=== PATIENT | female | born 1990 | race Hispanic/Latino ===

== ENCOUNTER 2017-04-09 15:21 | Inpatient (IN) | payer MEDICAID, OTHER ==
[2017-04-09] MEDS ORDERED: Naloxone 0.4 mg/ml Inj (Adult) IVP STA (15:33)
[2017-04-09 15:57] LABS: BASO % 0.4 % (0.0-2.0); EOS # 0.1 K/uL (0.0-0.7); EOS % 1.1 % (0.0-4.0); HEMATOCRIT 36.8 % (34.0-47.0); LYMPH # 2.6 K/uL (1.0-4.3); LYMPH % 29.3 % (20.0-40.0); MEAN CELL VOLUME 84.7 fL (81.0-99.0); MEAN CORPUSCULAR HEMOGLOBIN 28.2 pg (27.0-31.0); MEAN CORPUSCULAR HGB CONC 33.3 g/dL (33.0-37.0); MEAN PLATELET VOLUME 8.4 fL (7.2-11.7); MONO # 0.8 K/uL (0.0-0.8); RED CELL DISTRIBUTION WIDTH 13.4 % (11.5-14.5)
[2017-04-09 16:05] LABS: CHLORIDE 97 mmol/L (98-107)
[2017-04-09 16:06] LABS: SODIUM 138 mmol/L (132-148)
--- NOTE | 2017-04-09 16:06 | C.PDOC ---
History Of Present Illness <Sudheer Levin DO - Last Filed: 04/09/17 17:50> <StaceytylorYehuda - Last Filed: 04/09/17 22:21> 26 year old patient presents to the ED after overdosing on 9 bags of heroin nasally prior to arrival. Patient also ate 2 tablets of Klonopin and crack cocaine. Patient admits this was a suicide attempt. She wants to kill herself because she "can't stop using drugs." Patient denies homicidal ideation or any physical complaints at this time. Patient has a history of multiple ED and psych admissions. Patient's last psych admission was at [facility] and she was discharged 40 days later. (Sudheer Levin DO) History Per: Patient Onset/Duration Of Symptoms: Other Current Symptoms Are (Timing): Still Present Suicide/Self Injury Attempted (Context): Ingestion Modifying Factor(s): Crack, Other (heroin) Severity: None Pain Scale Rating Of: 0 Associated Symptoms: Suicidal Thoughts, Suicidal Plan Recent travel outside of the [place]: No <Sudheer Levin DO - Last Filed: 04/09/17 17:50> <Yehuda Watts - Last Filed: 04/09/17 22:21> Time Seen by Provider: 04/09/17 15:33 Chief Complaint (Nursing): Psychiatric Evaluation Past Medical History Reviewed: Historical Data, Nursing Documentation, Vital Signs Family History: States: Unknown Family Hx - Social History Hx Alcohol Use: Yes Hx Substance Use: Yes - Immunization History Hx Tetanus Toxoid Vaccination: No Hx Influenza Vaccination: No Hx Pneumococcal Vaccination: No <Sudheer Levin DO - Last Filed: 04/09/17 17:50> Review Of Systems Except As Marked, All Systems Reviewed And Found Negative. Constitutional: Negative for: Fever Respiratory: Negative for: Shortness of Breath Psych: Positive for: Suicidal ideation. Negative for: Other (homicidal ideation ) <Sudheer Levin DO - Last Filed: 04/09/17 17:50> Physical Exam - Physical Exam Appears: Other (drowsy but easily arousable) Skin: Warm, Dry, No Other (track weinstein) Head: Atraumatic, Normacephalic Eye(s): bilateral: Other (pinpoint pupils) Neck: Normal ROM, Supple Chest: Symmetrical Cardiovascular: Rhythm Regular Respiratory: Normal Breath Sounds, No Rales, No Rhonchi, No Wheezing Gastrointestinal/Abdominal: Soft, No Tenderness Back: Normal Inspection Extremity: Normal ROM Neurological/Psych: Oriented x3 Gait: Steady <Sudheer Levin DO - Last Filed: 04/09/17 17:50> ED Course And Treatment - Laboratory Results Result Diagrams: 04/09/17 15:52 04/09/17 15:52 ECG: Interpreted By Me, Viewed By Me ECG Rhythm: Sinus Rhythm Interpretation Of ECG: Normal axis and normal intervals. No prolonged QTC. Rate From EC (bpm) O2 Sat by Pulse Oximetry: 100 (room air) Pulse Ox Interpretation: Normal Progress Note: Plan: Labs, IV fluids <Sudheer Levin DO - Last Filed: 04/09/17 17:50> - Laboratory Results Result Diagrams: 04/09/17 15:52 04/09/17 15:52 Pulse Ox Interpretation: Normal <Yehuda Watts - Last Filed: 04/09/17 22:21> Disposition <Sudheer Levin DO - Last Filed: 04/09/17 17:50> Discussed With : Petra Esteban Comment: acceptedthe pt on her service and took over the care at 10:20PM Doctor Will See Patient In The: Hospital Counseled Patient/Family Regarding: Studies Performed, Diagnosis - Disposition Disposition Time: 19:00 - POA Present On Arrival: None <Yehuda Watts - Last Filed: 04/09/17 22:21> - Disposition Disposition: HOSPITALIZED Condition: FAIR - Clinical Impression Clinical Impression: Depressive disorder, Substance abuse - Scribe Statement The provider has reviewed the documentation as recorded by the Scribe <Sudheer Levin DO - Last Filed: 04/09/17 17:50> <Yehuda Watts - Last Filed: 04/09/17 22:21> - Scribe Statement Shawna Martinez (Sudheer Levin DO) Provider Attestation: All medical record entries made by the Scribe were at my direction and personally dictated by me. I have reviewed the chart and agree that the record accurately reflects my personal performance of the history, physical exam, medical decision making, and the department course for this patient. I have also personally directed, reviewed, and agree with the discharge instructions and disposition. (Sudheer Levin DO) Decision To Admit <Sudheer Levin DO - Last Filed: 04/09/17 17:50> - Pt Status Changed To: Hospital Disposition Of: Inpatient - Admit Certification Admit to Inpatient:: After my assessment, the patient will require hospitalization for at least two midnights. This is because of the severity of symptoms shown, intensity of services needed, and/or the medical risk in this patient being treated as an outpatient. - InPatient: Physician Admission Certification: I certify that this patient requires 2 or more midnights of care for the following reason:: After my assessment, the patient will require hospitalization for at least two midnights. This is because of the severity of symptoms shown, intensity of services needed, and/or the medical risk in this patient being treated as an outpatient. - . Bed Request Type: Psychiatry Admitting Physician: Petra Esteban <Yehuda Watts - Last Filed: 04/09/17 22:21> - . Patient Diagnosis: Depressive disorder
[2017-04-09 16:07] LABS: POTASSIUM 3.8 mmol/L (3.6-5.2)
[2017-04-09 16:08] LABS: ALB/GLOB RATIO 1.5 (1.0-2.1); ALKALINE PHOSPHATASE 50 U/L (38-126); AST/SGOT 121 U/L (14-36); BILIRUBIN,TOTAL 0.6 mg/dL (0.2-1.3); CARBON DIOXIDE 32 mmol/L (22-30); GFR AFRICAN-AMERICAN > 60; TOTAL PROTEIN 6.8 g/dL (6.3-8.3)
[2017-04-09 16:09] LABS: ALCOHOL SERUM < 10 mg/dl (0-10); ALT/SGPT 177 U/L (9-52); BLOOD UREA NITROGEN 9 mg/dL (7-17); CALCIUM 8.8 mg/dl (8.6-10.4); GLUCOSE,RANDOM 93 mg/dL (65-105)
[2017-04-09] MEDS ORDERED: Sodium Chloride 0.9% 1,000 ML IV ONE (16:50)
[2017-04-09 18:29] LABS: RBC URINE 1 /hpf (0-3); URINE BILIRUBIN NEGATIVE (NEGATIVE); URINE BLOOD NEGATIVE (NEGATIVE); URINE COLOR Yellow (YELLOW); URINE GLUCOSE (UA) NORMAL (Normal); URINE KETONE NEGATIVE (NEGATIVE); URINE LEUKOCYTE ESTERASE NEG Leu/uL (Negative); URINE PROTEIN NEGATIVE (NEGATIVE); URINE UROBILINOGEN NORMAL mg/dL (0.2-1.0); WBC URINE < 1 /hpf (0-5)
[2017-04-10] MEDS ORDERED: Aluminum Hydroxide/Magnesium Hydroxide Susp (30 mL) PO PRN (01:14)
--- NOTE | 2017-04-10 09:42 | PCM.PSYCH ---
Initial Psychiatric Evaluation - Initial Psychiatric Evaluation Type of Admission: Voluntary Legal Status: Capacity Chief Complaint (in patient's own words): "I can't stop using drugs." History of Present Illness and Precipitating Events: Patient is a 26 year old female who lives with her grandparents. 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 She presents to the ED after overdosing on 9 bags of heroin nasally, 2 tablets of Klonipin, and cocaine. She is suicidal because she "can't stop using drugs... only losers do this, and I can' t stop." She also smokes half a pack of cigarettes per day. Patient was brought in by her sponsor. Patient complains of depression and severe anxiety and mood swings. 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 Why is this happening to me?" She states she has racing thoughts and her mind won't stop running and sounds like TV static. She is nervous and her speech is pressured, but she is coherent and polite. She states her last treatment was at [facility] where she was given suboxone. Her last in-patient treat was at [facility] in February 2017, where she spent 10 days. After discharge, she stopped going to therapy and to her psychiatrist. She states she relapses when she gains weight, and this is what caused her to relapse this time. She asks for a dietitian consult to provide a diet plan she can follow in order not to gain weight. PMH: denies Allergies: sulfa Current Medications: Active Medications Generic Name Dose Route Start Last Admin Trade Name Freq PRN Reason Stop Dose Admin Al Hydrox/Mg Hydrox/Simethicone 30 ml 04/10/17 01:14 Maalox 30 Ml PO Q6H PRN Indigestion / Heartburn Chlordiazepoxide 25 mg 04/09/17 22:30 04/10/17 00:05 Librium PO 25 mg Q6 PRN Administration s/s withdrawals Hydroxyzine HCl 50 mg 04/09/17 22:30 04/10/17 00:05 Atarax PO 50 mg Q6 PRN Administration Anxiety Ibuprofen 600 mg 04/10/17 01:10 04/10/17 01:45 Motrin Tab PO 600 mg Q6H PRN Administration Pain, moderate (4-7) Nicotine 1 patch 04/10/17 10:00 Nicoderm Cq TD DAILY SLICK Ondansetron HCl 4 mg 04/10/17 01:12 Zofran Tab PO Q6H PRN Nausea/Vomiting Quetiapine Fumarate 100 mg 04/10/17 01:35 04/10/17 01:42 Seroquel PO 100 mg HS SLICK Administration Past Psychiatric History - Past Psychiatric History Previous Treatment History: None Pertinent Medical Hx (Current Medical&Sleep Prob, Allergies): Allergies Allergy/AdvReac Type Severity Reaction Status Date / Time Sulfa (Sulfonamide Allergy Verified 04/09/17 15:32 Antibiotics) No Known Home Med 04/09/17 Review of Systems - Review of Systems All systems: reviewed and no additional remarkable complaints except - Psychiatric Psychiatric: Anxiety, Depression, Hopelessness, Irritability, Mood Swings, Suicidal Ideation Mental Status Examination - Personal Presentation Personal Presentation: Looks stated age - Affect Affect: Constricted, Depressed - Motor Activity Motor Activity: Calm - Reliability in Providing Information Reliability in Providing Information: Good - Speech Speech: Organized - Mood Mood: Depressed, Anxious - Formal Thought Process Formal Thought Process: Flight of ideas - Obsessions/Compulsions Obsessions: No Compulsions: No - Cognitive Functions Orientation: Person, Place, Situation, Time Sensorium: Alert Attention/Concentration: Attentive Abstract Thinking: [place] Estimate of Intelligence: Below average Judgement: Imparied, as evidence by: Poor judgement, Imparied, as evidence by: Lack of insight into illness - Risk Risk: Suicidal, Diminished functioning - Strength & Assets Inventory Strength & Assets Inventory: Family support DSM 5 DX - DSM 5 DSM 5 Diagnosis: Bipolar disorder mixed severe without psychotic features Opiate use disorder severe Opiate withdrawal Sedative/hypnotic use disorder severe Alcohol use disorder severe - Recommended/Plan of Treatment Treatment Recommendations and Plan of Treatment: Bipolar disorder mixed severe without psychotic features CBT Psychoeducation Supportive therapy, group therapy, individual therapy Neurontin 100 mg by mouth 3 times a day SAeroquel 100 mg by mouth daily at bedtime Opiate use disorder severe CBT Psychoeducation Supportive therapy, individual therapy Use [place] for abstinence Opiate withdrawal CBT Psychoeducation Supportive therapy, individual therapy Methadone taper Sedative/hypnotic use disorder severe CBT Psychoeducation Supportive therapy, individual therapy Use [place] for abstinence Alcohol use disorder severe CBT Psychoeducation Supportive therapy, individual therapy Use [place] for abstinence - Smoking Cessation Smoking Cessation Initiated: No
[2017-04-11] MEDS ORDERED: Magnesium Hydroxide Susp 30 ml UD PO PRN (10:10)
--- NOTE | 2017-04-11 10:12 | PCM.PYCHPN ---
Psychiatric Progress Note - Psychiatric Progress Note Patient seen today, length of contact: 15 min Patient Chief Complaint: "I am feeling terrible." Problems Identified/Issues Discussed: Patient seen and evaluated, chart reviewed and discussed with the nurse. Patient remained irritable and agitated. Patient reports withdrawal symptoms including nausea, headaches, cramps and sweating. She reports anxiety and irritable mood and reorts poor sleep. She is taking medication and denied any side effects. Supportive therapy and psychoeducation were given. Medication Change: Yes (methaodne taper) Medical Record Reviewed: Yes Mental Status Examination - Cognitive Function Orientation: Person, Place, Situation, Time Memory: Intact Attention: WNL Concentration: Poor Association: WNL Fund of Knowledge: Poor - Mood Mood: Depressed, Anxious - Affect Affect: Constricted, Depressed - Speech Speech: Soft - Formal Thought Process Formal Thought Process: Flight of ideas - Suicidal Ideation Suicidal Ideation: No - Homicidal Ideation Homicidal Ideation: No Goal/Treatment Plan - Goal/Treatment Plan Need for Continued Stay: Discharge may exacerbated symptoms, Severe functional impairment Progress Toward Problem(s) and Goals/Treatment Plan: Bipolar disorder mixed severe without psychotic features CBT Psychoeducation Supportive therapy, group therapy, individual therapy Neurontin 100 mg by mouth 3 times a day Seroquel 100 mg by mouth daily at bedtime Opiate use disorder severe CBT Psychoeducation Supportive therapy, individual therapy Use [place] for abstinence Opiate withdrawal CBT Psychoeducation Supportive therapy, individual therapy Methadone taper Sedative/hypnotic use disorder severe CBT Psychoeducation Supportive therapy, individual therapy Use [place] for abstinence Alcohol use disorder severe CBT Psychoeducation Supportive therapy, individual therapy Use [place] for abstinence - Smoking Cessation Smoking Cessation Initiated: No
--- NOTE | 2017-04-12 14:16 | PCM.PYCHPN ---
Psychiatric Progress Note - Psychiatric Progress Note Patient seen today, length of contact: 15 min Patient Chief Complaint: "I'm good. I still feel anxious." Problems Identified/Issues Discussed: Patient seen and evaluated, chart reviewed and discussed with the nurse. Patient states she is feeling better but is still feeling anxious. Patient states her medications are helping with her anxiety and that she does not have any side effects. Patient seen asking for anxiety medications. Patient is still irritable and short during her examination. Patient denies any suicidal ideation. As per nursing, patient is still very flirtatious with other patients , but is sleeping well. Patient states her AA sponsor is working on discharge placement to in-patient rehab. Supportive therapy and psychoeducation were given. Medication Change: Yes (methaodne taper) Medical Record Reviewed: Yes Mental Status Examination - Cognitive Function Orientation: Person, Place, Situation, Time Memory: Intact Attention: WNL Concentration: Poor Association: WNL Fund of Knowledge: Poor - Mood Mood: Depressed, Anxious - Affect Affect: Constricted, Depressed - Speech Speech: Soft - Formal Thought Process Formal Thought Process: Flight of ideas - Suicidal Ideation Suicidal Ideation: No - Homicidal Ideation Homicidal Ideation: No Goal/Treatment Plan - Goal/Treatment Plan Need for Continued Stay: Discharge may exacerbated symptoms, Severe functional impairment Progress Toward Problem(s) and Goals/Treatment Plan: Bipolar disorder mixed severe without psychotic features CBT Psychoeducation Supportive therapy, group therapy, individual therapy Neurontin 100 mg by mouth 3 times a day Seroquel 100 mg by mouth daily at bedtime Opiate use disorder severe CBT Psychoeducation Supportive therapy, individual therapy Use [place] for abstinence Opiate withdrawal CBT Psychoeducation Supportive therapy, individual therapy Methadone taper Sedative/hypnotic use disorder severe CBT Psychoeducation Supportive therapy, individual therapy Use [place] for abstinence Alcohol use disorder severe CBT Psychoeducation Supportive therapy, individual therapy Use [place] for abstinence
[2017-04-13 11:15] VITALS: O2SAT 99
--- NOTE | 2017-04-13 17:03 | PCM.PYCHPN ---
Psychiatric Progress Note - Psychiatric Progress Note Patient seen today, length of contact: 15 min Patient Chief Complaint: I still have some withdrawal symptoms, can I get one extra dose of methadone 5 mg. Problems Identified/Issues Discussed: Patient seen. Chart reviewed. Case discussed with the staff. Issues related to illness and treatment were discussed with the patient. Reported compliant with treatment with no adverse affects. Tolerating treatment very well. Patient reported still feeling some withdrawal symptoms including body aches, abdominal cramps. Also reported feeling anxious. Asking for one extra dose of methadone 5 mg. Education provided about the treatment. At the time of evaluation, patient was awake alert oriented 3, had no delusions, no auditory or visual hallucinations, no suicidal ideations or homicidal ideations. Medical Problems: None reported Diagnostic Results: Reviewed DSM 5 Symptoms Update: Improvement with treatment Medication Change: No Medical Record Reviewed: Yes Mental Status Examination - Cognitive Function Orientation: Person, Place, Situation, Time Memory: Intact Attention: WNL Concentration: WNL Association: WN Fund of Knowledge: [facility] Decription of patient's judgement and insights: Fair - Mood Mood: Anxious - Affect Affect: Other - Speech Speech: Appropriate, Soft - Formal Thought Process Formal Thought Process: No Impairment Psychotic Thoughts and Behaviors: None - Suicidal Ideation Suicidal Ideation: No - Homicidal Ideation Homicidal Ideation: No Goal/Treatment Plan - Goal/Treatment Plan Need for Continued Stay: Remain at risks for inpatient hospitalization, Discharge may exacerbated symptoms, Severe functional impairment Progress Toward Problem(s) and Goals/Treatment Plan: Patient education Supportive therapy Continue treatment as before Estimated Date of D/C: 04/16/17 - Smoking Cessation Smoking Cessation Initiated: Yes
--- NOTE | 2017-04-14 13:58 | PCM.PYCHPN ---
Psychiatric Progress Note - Psychiatric Progress Note Patient seen today, length of contact: 15 min Patient Chief Complaint: I'm feeling better. I have some concerns about my Ativan. Problems Identified/Issues Discussed: Patient seen. Chart reviewed. Case discussed with the staff. Issues related to illness and treatment were discussed with the patient. Reported compliant with treatment with no adverse affects. Tolerating treatment very well. Patient reported feeling better. Patient had some concerns about her Ativan after discharge. Education provided. We'll adjust the dose of Ativan from 1 mg every 6 hours when necessary to 1 mg every 12 when necessary. At the time of evaluation, patient was awake alert oriented 3, had no delusions, no auditory or visual hallucinations, no suicidal ideations or homicidal ideations. Medical Problems: None reported Diagnostic Results: Reviewed DSM 5 Symptoms Update: Improving with treatment Medication Change: No Medical Record Reviewed: Yes Mental Status Examination - Cognitive Function Orientation: Person, Place, Situation, Time Memory: Intact Attention: WNL Concentration: WNL Association: WNL Fund of Knowledge: [facility] Decription of patient's judgement and insights: Fair - Mood Mood: Anxious - Affect Affect: Other - Speech Speech: Appropriate, Soft - Formal Thought Process Formal Thought Process: No Impairment Psychotic Thoughts and Behaviors: None - Suicidal Ideation Suicidal Ideation: No - Homicidal Ideation Homicidal Ideation: No Goal/Treatment Plan - Goal/Treatment Plan Need for Continued Stay: Remain at risks for inpatient hospitalization, Discharge may exacerbated symptoms, Severe functional impairment Progress Toward Problem(s) and Goals/Treatment Plan: Patient education Supportive therapy Will adjust the dose of Ativan 1 mg by mouth every 12 when necessary from 1 mg every 6 when necessary Continue rest of the treatment as before Estimated Date of D/C: 04/16/17 - Smoking Cessation Smoking Cessation Initiated: Yes
--- NOTE | 2017-04-15 17:10 | PCM.PYCHPN ---
Psychiatric Progress Note - Psychiatric Progress Note Patient seen today, length of contact: 15 min Patient Chief Complaint: I'm feeling better. Problems Identified/Issues Discussed: Patient seen. Chart reviewed. Case discussed with the staff. Issues related to illness and treatment were discussed with the patient. Reported compliant with treatment with no adverse affects. Tolerating treatment very well. Patient reported feeling better. Patient had some concerns about her Ativan after discharge. Education provided. At the time of evaluation, patient was awake alert oriented 3, had no delusions, no auditory or visual hallucinations, no suicidal ideations or homicidal ideations. Medical Problems: None reported Diagnostic Results: Reviewed DSM 5 Symptoms Update: Improving with treatment Medication Change: No Medical Record Reviewed: Yes Mental Status Examination - Cognitive Function Orientation: Person, Place, Situation, Time Memory: Intact Attention: WNL Concentration: WNL Association: [facility] Fund of Knowledge: [facility] Decription of patient's judgement and insights: Fair - Mood Mood: Neutral - Affect Affect: Other (Appropriate) - Speech Speech: Appropriate, Soft - Formal Thought Process Formal Thought Process: No Impairment Psychotic Thoughts and Behaviors: None - Suicidal Ideation Suicidal Ideation: No - Homicidal Ideation Homicidal Ideation: No Goal/Treatment Plan - Goal/Treatment Plan Need for Continued Stay: Remain at risks for inpatient hospitalization, Discharge may exacerbated symptoms, Severe functional impairment Progress Toward Problem(s) and Goals/Treatment Plan: Patient education Supportive therapy Continue treatment as before Estimated Date of D/C: 04/16/17 - Smoking Cessation Smoking Cessation Initiated: Yes
--- NOTE | 2017-04-16 09:42 | PCM.PYCHDC ---
Mental Status Examination - Mental Status Examination Orientation: Person, Place, Situation, Time Memory: Intact Mood: Neutral Affect: Constricted Speech: Soft Attention: WNL Concentration: WNL Association: WNL Fund of Knowledge: WNL Formal Thought Process: No Impairment Description of patient's judgement and insight: good, fair Psychotic Thoughts and Behaviors: denies any AVH Suicidal Ideation: No Current Homicidal Ideation?: No Discharge Summary - Discharge Note Reason for Hospitalization: Patient is a 26 year old female who lives with her grandparents. 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 She presents to the ED after overdosing on 9 bags of heroin nasally, 2 tablets of Klonipin, and cocaine. She is suicidal because she "can't stop using drugs... only losers do this, and I can' t stop." She also smokes half a pack of cigarettes per day. Patient was brought in by her AA sponsor. Patient complains of depression and severe anxiety and mood swings. 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 Why is this happening to me?" She states she has racing thoughts and her mind won't stop running and sounds like TV static. She is nervous and her speech is pressured, but she is coherent and polite. She states her last treatment was at [facility] where she was given suboxone. Her last in-patient treat was at [facility] in February 2017, where she spent 10 days. After discharge, she stopped going to therapy and to her psychiatrist. She states she relapses when she gains weight, and this is what caused her to relapse this time. She asks for a dietitian consult to provide a diet plan she can follow in order not to gain weight. PMH: denies Allergies: sulfa Consultations:: List each consultation separately and include: 1. Reason for request. 2. Findings. 3. Follow-up Summary of Hospital Course include:: 1. Description of specific treatment plan utilized for patients during their course of treatmen. 2. Summarize the time- course for resolution of acute symptoms and/or regressed behaviors. 3. Describe issues identified and worked on during hospitalization. 4. Describe medication utilized. 5. Describe medical problems identified and treated. 6. Reassessment of suicide risk Summary of Hospital Course: During the course of her stay, patient (pt) started progressively improving and she no longer remained anxious, depressed and suicidal. Her mood was getting better and she started attending groups and meetings and started socializing. The doses of her medications were maximized and patient denied any feelings of hopelessness, helplessness, and worthlessness, denied any problem with the sleep or appetite, denied suicidal ideation or homicidal ideation. Pt denied any auditory or visual hallucinations. Patient reported improvement in her mood and tolerated these medications very well and denied any side effects. - Final Diagnosis (DSM 5) Condition upon Discharge: FAIR DSM 5: Bipolar disorder mixed severe without psychotic features Opiate use disorder severe Opiate withdrawal Sedative/hypnotic use disorder severe Alcohol use disorder severe Disposition: HOME/ ROUTINE Follow-up Treatment Plan: Education: Pt was educated and counseled about the risks and benefits of taking and not taking medications. Pt was educated and counseled about the risks of drinking and abusing drugs. Pt was educated and counseled to go to the ER or call 911 if pt develop suicidal ideation or homicidal ideation, worsening of symptoms or severe side effects of the meds. Prescriptions/Medication Reconciliation: Gabapentin [Neurontin] 100 mg PO BID #60 cap QUEtiapine [Seroquel] 100 mg PO HS #30 tab - Smoking Cessation Smoking Cessation Medication prescribed: No - Antipsychotic Medications Pt discharged on 2 or more routine antipsychotic medications: No
[2017-04-16 11:42] VITALS: BP 108/67; PULSE 79; RESP 19; TEMP 97.8
--- NOTE | 2017-04-29 14:34 | CARD ---
APPROVED REPORT EKG Measurement Heart [id number] <Conclusion> Sinus tachycardia Possible Left atrial enlargement Left ventricular hypertrophy Abnormal ECG
== END 2017-04-16 10:20 | disposition home or self-care (01) | DRG 430 ==
LOC: C.ER 15:21 → C.5E 22:21
PROVIDERS: ADMIT Psychiatry & Neurology Psychiatry; ATTEND Psychiatry & Neurology Psychiatry
PROC: GZ3ZZZZ Medication Management (ICD-10-PCS; principal; 2017-04-09)
PROC: HZ91ZZZ Pharmacotherapy for Substance Abuse Treatment, Methadone Maintenance (ICD-10-PCS; 2017-04-09)
PROC: HZ59ZZZ Individual Psychotherapy for Substance Abuse Treatment, Supportive (ICD-10-PCS; 2017-04-09)
PROC: GZHZZZZ Group Psychotherapy (ICD-10-PCS; 2017-04-09)
PROC: GZ56ZZZ Individual Psychotherapy, Supportive (ICD-10-PCS; 2017-04-09)
DX: F31.63 Bipolar disorder, current episode mixed, severe, without psychotic features (principal); F11.23 Opioid dependence with withdrawal; F13.20 Sedative, hypnotic or anxiolytic dependence, uncomplicated; R45.851 Suicidal ideations; F10.20 Alcohol dependence, uncomplicated

== ENCOUNTER 2017-06-28 17:34 | Inpatient (IN) | payer MEDICAID, OTHER ==
[2017-06-28 18:35] LABS: BASO # 0.1 K/uL (0.0-0.2); BASO % 0.6 % (0.0-2.0); EOS # 0.1 K/uL (0.0-0.7); EOS % 0.6 % (0.0-4.0); HEMATOCRIT 39.9 % (34.0-47.0); LYMPH # 2.7 K/uL (1.0-4.3); LYMPH % 24.6 % (20.0-40.0); MEAN CELL VOLUME 83.7 fL (81.0-99.0); MEAN CORPUSCULAR HEMOGLOBIN 27.9 pg (27.0-31.0); MEAN CORPUSCULAR HGB CONC 33.4 g/dL (33.0-37.0); MEAN PLATELET VOLUME 7.8 fL (7.2-11.7); MONO # 0.9 K/uL (0.0-0.8); MONO % 8.5 % (0.0-10.0); RED CELL DISTRIBUTION WIDTH 15.1 % (11.5-14.5)
[2017-06-28 18:41] LABS: RBC URINE 13 /hpf (0-3); URINE BACTERIA RARE (<OCC); URINE BILIRUBIN NEGATIVE (NEGATIVE); URINE BLOOD 2+ (NEGATIVE); URINE COLOR Yellow (YELLOW); URINE GLUCOSE (UA) NORMAL (Normal); URINE HYALINE CAST 0-2 /lpf (0-2); URINE KETONE TRACE mg/dL (NEGATIVE); URINE LEUKOCYTE ESTERASE NEG Leu/uL (Negative); URINE PROTEIN NEGATIVE (NEGATIVE); URINE UROBILINOGEN NORMAL mg/dL (0.2-1.0); WBC URINE < 1 /hpf (0-5)
[2017-06-28 18:44] LABS: CHLORIDE 99 mmol/L (98-107); POTASSIUM 3.9 mmol/L (3.6-5.2); SODIUM 141 mmol/L (132-148)
[2017-06-28 18:46] LABS: AST/SGOT 256 U/L (14-36); BILIRUBIN,TOTAL 0.7 mg/dL (0.2-1.3); CARBON DIOXIDE 25 mmol/L (22-30); GFR AFRICAN-AMERICAN > 60
[2017-06-28 18:47] LABS: ALB/GLOB RATIO 1.3 (1.0-2.1); ALKALINE PHOSPHATASE 88 U/L (38-126); ALT/SGPT 288 U/L (9-52); BLOOD UREA NITROGEN 9 mg/dL (7-17); CALCIUM 9.3 mg/dl (8.6-10.4); GLUCOSE,RANDOM 111 mg/dL (65-105); TOTAL PROTEIN 7.8 g/dL (6.3-8.3)
[2017-06-28 18:57] LABS: ALCOHOL SERUM 354 mg/dl (0-10)
--- NOTE | 2017-06-28 21:39 | C.PDOC ---
History Of Present Illness 26 year old female presents to the emergency department with complaints of depression and suicidal ideation. Patient states she drank alcohol today and last alcohol use was just prior to arrival. She denies abdominal pain, vomiting , homicidal ideations, or other complaints at this time. Time Seen by Provider: 06/28/17 17:54 Chief Complaint (Nursing): Psychiatric Evaluation History Per: Patient, Family (father ) History/Exam Limitations: no limitations Onset/Duration Of Symptoms: Hrs Current Symptoms Are (Timing): Still Present Suicide/Self Injury Attempted (Context): None Modifying Factor(s): Alcohol Associated Symptoms: Depression, Suicidal Thoughts Involuntary Hold By: None Recent travel outside of the [place]: No Past Medical History Reviewed: Historical Data, Nursing Documentation, Vital Signs Vital Signs: Last Vital Signs Temp 97.7 F 07/01/17 09:41 Pulse 81 07/01/17 15:47 Resp 16 07/01/17 09:41 BP 119/76 07/01/17 15:47 Pulse Ox 99 07/01/17 09:41 - Medical History PMH: Bipolar Disorder, Personality Disorder, Schizophrenia, Seizures (x 1 secondary to Klonopin withdrawal) - [facility] GROUP PSYCHOTHERAPY (04/09/17) INDIV PSYCHOTHERAPY FOR SUBSTANCE ABUSE TREATMENT, SUPPORT (04/09/17) INDIVIDUAL PSYCHOTHERAPY, SUPPORTIVE (04/09/17) MEDICATION MANAGEMENT (04/09/17) PHARMACOTHERAPY FOR SUBSTANCE ABUSE, METHADONE MAINT (04/09/17) Family History: States: Unknown Family Hx - Social History Hx Alcohol Use: Yes (Wine) Hx Substance Use: Yes - Immunization History Hx Tetanus Toxoid Vaccination: No Hx Influenza Vaccination: No Hx Pneumococcal Vaccination: No Review Of Systems Constitutional: Negative for: Fever, Chills Cardiovascular: Negative for: Chest Pain, Palpitations Respiratory: Negative for: Cough, Shortness of Breath Gastrointestinal: Negative for: Nausea, Vomiting, Abdominal Pain, Diarrhea Psych: Positive for: Depression, Suicidal ideation Physical Exam - Physical Exam Appears: Non-toxic, No Acute Distress Skin: Warm, Dry Head: Atraumatic Eye(s): bilateral: Normal Inspection, EOMI Oral Mucosa: Moist Neck: Supple Chest: Symmetrical, No Deformity Cardiovascular: Rhythm Regular Respiratory: Normal Breath Sounds, No Rhonchi, No Wheezing Gastrointestinal/Abdominal: Soft, No Tenderness, No Distention, No Guarding, No Rebound Extremity: Normal ROM, No Tenderness Neurological/Psych: Oriented x3, Normal Speech, Normal Cognition, Normal Cranial Nerves, Normal Motor, Normal Sensation Gait: Steady ED Course And Treatment - Laboratory Results Result Diagrams: 06/28/17 18:32 06/28/17 18:32 O2 Sat by Pulse Oximetry: 95 (room air ) Progress Note: Patient was given Zofran and Xanax. ED OBSERVATION Discharge: Yes Date of observation admission: 06/28/17 Time of observation admission: 18:45 - Observation admission statement Patient is being placed in observation because:: patient is intoxicated and notes suicidal ideations. - Goals of Observation Goals of observation are:: Sobriety. Disposition - Disposition Disposition: HOSPITALIZED Disposition Time: 01:00 Condition: IMPROVED - Clinical Impression Clinical Impression: Alcohol abuse - Scribe Statement The provider has reviewed the documentation as recorded by the Scribilya Melendez All medical record entries made by the Kareemibilya were at my direction and personally dictated by me. I have reviewed the chart and agree that the record accurately reflects my personal performance of the history, physical exam, medical decision making, and the department course for this patient. I have also personally directed, reviewed, and agree with the discharge instructions and disposition.
[2017-06-29] MEDS: Multiple Vitamins Tab PO SCH (11:11)
--- NOTE | 2017-06-29 11:45 | PCM.BM ---
<Radha Mak - Last Filed: 06/29/17 11:42> Treatment Plan Problems - Problems identified on initial assessmt Depression Date Initiated: 06/29/17 Time Initiated: 11:43 Assessment reference: NA Status: Active Substance Abuse Date Initiated: 06/29/17 Time Initiated: 11:43 Assessment reference: NA Status: Active Treatment assets and liabiliti Patient Assests: cooperative, ADL independent, physically healthy, good past tx response, cognitively intact Patient Liabilities: substance abuse (ETOH) - Milieu Protocol Maintain good personal hygiene: daily Encourage regular showers Maintain personal safety: every shift Educate patient to report safety concerns to staff, every shift Monitor environment for contraband/sharps Medication safety: Monitor for expected outcome, potential side effects: every shift, Assess barriers to learning: every shift, Assess readiness for medication education: every shift <Diandra Barton - Last Filed: 07/01/17 11:05> Family Contact Family involvement: Family/SO is involved Family contact: Patient agrees to contact Family contact name: James Lugo-father Family contacted how many times per week?: 91 - Goals for Treatment Patient goals for treatment: "I'm going to rehab." Discharge/Continuing Care - Education Needs Education Needs: Patient Medication, Patient Coping Skills, Patient Community resources - Discharge Discharge Criteria: Tolerates medication w/o severe side effects, No longer exhibiting s/s of withdrawal Discharge to:: Substance Abuse Rehab - Treatment Team Participation Discussed with Family/SO: Yes Was Patient/Family/SO present at Treatment Team Meeting: Yes <Chong Johnston - Last Filed: 07/01/17 11:13> - Diagnosis (1) Bipolar I disorder, most recent episode depressed, severe without psychotic features Status: Acute Interventions: 07/01/17 11:11 * Assess/adjust medications daily and /or as needed * See patient on an individual basis 7x/week to assess level of manic behaviors and stability * Discuss risks, benefits, side effects and alternatives of medications (2) Alcohol use disorder, severe, dependence Status: Acute Interventions: 07/01/17 11:12 * Assess 7x/week regarding severity of withdrawal * Educate regarding risks, benefits, side effects and alternatives of medications * Use Motivational Interviewing for abstinence * Use CBT for relapse prevention * Medication management for withdrawal symptoms * Encourage medication assisted treatment
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
[2017-06-30] MEDS: Multiple Vitamins Tab PO SCH (10:00)
--- NOTE | 2017-06-30 20:45 | PCM.PYCHPN ---
Psychiatric Progress Note - Psychiatric Progress Note Patient seen today, length of contact: 15 minutes Patient Chief Complaint: "I'm feeling better" Problems Identified/Issues Discussed: Patient was seen. Chart was reviewed important content noted. Nurse input received. Patient has no new complaints. No events overnight. Patient slept well and is eating well. Patient reported that she still experiencing withdrawal symptoms, but reported improvement in her withdrawal symptoms with medication. Denies suicidal or homicidal ideation. Patient reported improvement in hallucinations. No delusions elicited. No paranoia elicited. Patient has remained in good clinical and behavioral control. Patient is finding medications beneficial and would like to continue with treatment plan. Patient appreciated that treatment team is trying to help. Diagnostic Results: no new lab result DSM 5 Symptoms Update: Bipolar I disorder mre depressive. Alcohol use d/o severe, intoxicated, withdrawal Opioid use d/o Medication Change: No Medical Record Reviewed: Yes Mental Status Examination - Cognitive Function Orientation: Person, Place, Situation, Time Memory: Intact Attention: WNL Concentration: WNL Association: WNL Fund of Knowledge: [facility] Decription of patient's judgement and insights: fair/fair - Mood Mood: Depressed - Affect Affect: Constricted, Depressed - Speech Speech: Appropriate - Formal Thought Process Formal Thought Process: Hallucinations Psychotic Thoughts and Behaviors: Reported improvement in VH - Suicidal Ideation Suicidal Ideation: No - Homicidal Ideation Homicidal Ideation: No Goal/Treatment Plan - Goal/Treatment Plan Progress Toward Problem(s) and Goals/Treatment Plan: Admit to 5E. Continue etoh detox. Thiamine, MV, Folic acid Nicotine patch for nicotine craving. Seroquel and will titrate it for her mood stabilization. Will consider to start Naltrexone for alcohol craving before discharge. therapy in milieu. Education: Pt was educated and counseled about the risks and benefits of taking and not taking medications. Pt was educated and counseled about the risks of drinking and abusing drugs.
[2017-07-01] MEDS: Multiple Vitamins Tab PO SCH (09:49)
--- NOTE | 2017-07-01 11:09 | PCM.PYCHPN ---
Psychiatric Progress Note - Psychiatric Progress Note Patient seen today, length of contact: 15 minutes Patient Chief Complaint: I am feeling irritable and anxious.' Problems Identified/Issues Discussed: Patient seen and evaluated, chart reviewed and discussed with the nurse. Patient remained irritable and agitated. She still reports racing of thoughts and anxiety. Patient reports withdrawal symptoms including nausea, headaches, cramps and sweating. She reports depressed mood and at times feelings of hopelessness and helplessness. She is taking medication and denies any side effects. Supportive therapy and psychoeducation were given. Medication Change: Yes (Start Topamax, Start Neurontin) Medical Record Reviewed: Yes Mental Status Examination - Cognitive Function Orientation: Person, Place, Situation, Time Memory: Intact Attention: WNL Concentration: Poor Association: WNL Fund of Knowledge: Poor - Mood Mood: Depressed - Affect Affect: Constricted, Depressed - Speech Speech: Appropriate - Formal Thought Process Formal Thought Process: No Impairment - Suicidal Ideation Suicidal Ideation: No - Homicidal Ideation Homicidal Ideation: No Goal/Treatment Plan - Goal/Treatment Plan Need for Continued Stay: Discharge may exacerbated symptoms, Severe functional impairment Progress Toward Problem(s) and Goals/Treatment Plan: Bipolar I disorder mre depressive. Alcohol use d/o severe, Alcohol Withdrawal Opioid use d/o Admit to 5E. Start etoh detox. Start Thiamine, MV, Folic acid Start Nicotine patch for nicotine craving. Start Seroquel and will titrate it for her mood stabilization. Will consider to start Naltrexone for alcohol craving. therapy in milieu. Start Neurontiin 300 mg PO BID Start Topamax 25 mg PO BID - Smoking Cessation Smoking Cessation Initiated: No
[2017-07-01 19:02] VITALS: O2SAT 95
[2017-07-02 08:46] LABS: CHLORIDE 100 mmol/L (98-107)
[2017-07-02 08:47] LABS: POTASSIUM 4.1 mmol/L (3.6-5.2); SODIUM 139 mmol/L (132-148)
[2017-07-02 08:49] LABS: AST/SGOT 443 U/L (14-36); BILIRUBIN,TOTAL 0.8 mg/dL (0.2-1.3); CARBON DIOXIDE 31 mmol/L (22-30); GFR AFRICAN-AMERICAN > 60
[2017-07-02 08:50] LABS: ALB/GLOB RATIO 1.3 (1.0-2.1); ALKALINE PHOSPHATASE 86 U/L (38-126); ALT/SGPT 480 U/L (9-52); BLOOD UREA NITROGEN 13 mg/dL (7-17); CALCIUM 9.5 mg/dl (8.6-10.4); GLUCOSE,RANDOM 95 mg/dL (65-105); TOTAL PROTEIN 7.5 g/dL (6.3-8.3)
[2017-07-02] MEDS: Multiple Vitamins Tab PO SCH (09:29)
--- NOTE | 2017-07-02 15:41 | PCM.PYCHPN ---
Psychiatric Progress Note - Psychiatric Progress Note Patient seen today, length of contact: 15 minutes Patient Chief Complaint: I am still feeling anxious.' Problems Identified/Issues Discussed: Patient seen and evaluated, chart reviewed and discussed with the nurse. As per the staff, pt started coming out of her room but still reports irritability and agitation. She still reports racing of thoughts and anxiety. She reports at times depressed mood and poor sleep. Patient reports withdrawal symptoms including nausea, headaches, cramps and sweating. She is taking medication and denies any side effects. She needs more time for stabilization. Supportive therapy and psychoeducation were given. Medication Change: Yes (Start Topamax, Start Neurontin) Medical Record Reviewed: Yes Mental Status Examination - Cognitive Function Orientation: Person, Place, Situation, Time Memory: Intact Attention: WNL Concentration: Poor Association: WNL Fund of Knowledge: Poor - Mood Mood: Depressed - Affect Affect: Constricted, Depressed - Speech Speech: Appropriate - Formal Thought Process Formal Thought Process: No Impairment - Suicidal Ideation Suicidal Ideation: No - Homicidal Ideation Homicidal Ideation: No Goal/Treatment Plan - Goal/Treatment Plan Need for Continued Stay: Discharge may exacerbated symptoms, Severe functional impairment Progress Toward Problem(s) and Goals/Treatment Plan: Bipolar I disorder mre depressive. Alcohol use d/o severe, Alcohol Withdrawal Opioid use d/o Admit to 5E. Start etoh detox. Start Thiamine, MV, Folic acid Start Nicotine patch for nicotine craving. Start Seroquel and will titrate it for her mood stabilization. Will consider to start Naltrexone for alcohol craving. therapy in milieu. Start Neurontiin 300 mg PO BID Start Topamax 25 mg PO BID - Smoking Cessation Smoking Cessation Initiated: No
[2017-07-03 07:29] VITALS: RESP 18
[2017-07-03] MEDS: Multiple Vitamins Tab PO SCH (10:06)
--- NOTE | 2017-07-03 14:01 | PCM.PYCHPN ---
Psychiatric Progress Note - Psychiatric Progress Note Patient seen today, length of contact: 15 minutes Patient Chief Complaint: I ma feeling much better Problems Identified/Issues Discussed: Patient seen and evaluated, chart reviewed and discussed with the nurse. Pt reports improvement in her mood and irritability. She also reports improvement in her depressed mood and sleep. Patient still reports withdrawal symptoms including headaches, and sweating. She is taking medication and denies any side effects. She needs more time for stabilization. Supportive therapy and psychoeducation were given. Medication Change: Yes (Start Topamax, Start Neurontin) Medical Record Reviewed: Yes Mental Status Examination - Cognitive Function Orientation: Person, Place, Situation, Time Memory: Intact Attention: WNL Concentration: WNL Association: WNL Fund of Knowledge: Poor - Mood Mood: Depressed - Affect Affect: Constricted, Depressed - Speech Speech: Appropriate - Formal Thought Process Formal Thought Process: No Impairment - Suicidal Ideation Suicidal Ideation: No - Homicidal Ideation Homicidal Ideation: No Goal/Treatment Plan - Goal/Treatment Plan Need for Continued Stay: Discharge may exacerbated symptoms, Severe functional impairment Progress Toward Problem(s) and Goals/Treatment Plan: Bipolar I disorder mre depressive. Alcohol use d/o severe, Alcohol Withdrawal Opioid use d/o Admit to 5E. Start etoh detox. Start Thiamine, MV, Folic acid Start Nicotine patch for nicotine craving. Start Seroquel and will titrate it for her mood stabilization. Will consider to start Naltrexone for alcohol craving. therapy in milieu. Neurontiin 300 mg PO BID Topamax 25 mg PO BID - Smoking Cessation Smoking Cessation Initiated: No
[2017-07-04 07:18] VITALS: BP 118/81; PULSE 91; TEMP 97.5
[2017-07-04] MEDS: Multiple Vitamins Tab PO SCH (10:54)
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
== END 2017-07-04 13:40 | disposition home or self-care (01) | DRG 430 ==
LOC: C.ER 17:34 → C.9OBSV 19:07 → C.5E 06-29 01:06 → OBSVTOIN 06-29 01:06 → C.5E 06-29 02:21
PROVIDERS: ADMIT Psychiatry & Neurology Psychiatry; ATTEND Psychiatry & Neurology Psychiatry
PROC: HZ2ZZZZ Detoxification Services for Substance Abuse Treatment (ICD-10-PCS; principal; 2017-06-29)
DX: F31.4 Bipolar disorder, current episode depressed, severe, without psychotic features (principal); R45.851 Suicidal ideations; F10.230 Alcohol dependence with withdrawal, uncomplicated; F41.9 Anxiety disorder, unspecified; F60.9 Personality disorder, unspecified; F10.220 Alcohol dependence with intoxication, uncomplicated; Y90.8 Blood alcohol level of 240 mg/100 ml or more